=== PATIENT | male | born 1975 | race Caucasian/White ===

== ENCOUNTER → 2021-02-25 | Outpatient (CLI) | payer OTHER ==
--- NOTE | 2021-02-25 16:08 | Diagnostic Imaging Report ---
INDICATION: Lump in the perineal region. No prior studies are available for comparison. Sonographic interrogation of the area of lump in the perineal region was performed. There is a complex hypoechoic mass measuring 17 mm x 56 mm x 14 mm. This does show some vascularity along the margins. This may represent an abscess. IMPRESSION: Probable abscess just below the skin surface at the area of a palpable lump in the perineum. CT may be useful for further catheterization. Dictated by: Dictated on workstation # [id number]
== END ==
LOC: RAD 14:59
PROVIDERS: ATTEND Nurse Practitioner Family
DX: N50.89 Other specified disorders of the male genital organs (principal)
CPT/HCPCS: 76881